=== PATIENT | female | born 1940 | race Two or more races ===

== ENCOUNTER 2017-02-10 19:28 | Inpatient (IN) | payer OTHER ==
[~2017-02-10] VITALS: Ht 157.5 cm; Wt 79.6 kg
[2017-02-10] MEDS ORDERED: ACETAMINOPHEN 325 MG TAB PO ONE ×2 (20:04→20:15)
[2017-02-10 21:40] LABS: Basophils # (auto) 0.1 uL; Basophils % (auto) 0.5 % (0.0-2.0); Eosinophils # (auto) 0 uL; Eosinophils % (auto) 0.1 % (0.0-7.0); Hematocrit 42.3 % (36.0-46.0); Hemoglobin 14.1 g/dL (12.2-16.2); Lymphocytes # (auto) 1.9 uL; Lymphocytes % (auto) 9.2 % (10.0-50.0); Mean Corpuscular Hemoglobin 29.2 pg (28.0-32.0); Mean Corpuscular Hgb Conc. 33.3 g/dL (32.0-36.0); Mean Corpuscular Volume 87.7 fL (80.0-100.0); Mean Platelet Volume 9.5 fL (6.9-10.8); Monocytes # (auto) 1.8 uL; Monocytes % (auto) 8.9 % (0.0-12.0); Neutrophils # (auto) 16.6 uL; Neutrophils % (auto) 81.3 % (37.0-80.0); Platelet Count (auto) 170 10^3/uL (140-450); White Blood Cell 20.4 10^3/uL (4.4-10.8)
[2017-02-10] MEDS ORDERED: CEFTRIAXONE SODIUM 2 GM in D5W 5% 50 ML IV ONE (21:45)
[2017-02-10 21:49] LABS: Urine Bilirubin Negative (Negative); Urine Blood 1+ /uL (Negative); Urine Color Yellow (Yellow); Urine Glucose Normal (Normal); Urine Ketone Negative (Negative); Urine Mucus FEW (None Seen); Urine Nitrite POSITIVE (Negative); Urine RBC 8 /hpf (0 - 4); Urine Squamous Epithelial Cell FEW /hpf (<5); Urine Urobilinogen Normal (Negative)
[2017-02-10 21:49] LABS: INR 1.15 (0.9-1.15); Partial Thromboplastin Time 27.7 sec (22.64-33.71); Prothrombin Time 12.6 sec (9.37-12.3)
[2017-02-10 22:02] LABS: Albumin 3.3 g/dL (3.4-5.0); BUN/Creatinine Ratio 24.2; Calcium 8.4 mg/dL (8.5-10.1); Potassium 3.3 mmol/L (3.5-5.1)
[2017-02-10] MEDS ORDERED: cefTRIAXone SOD 1,000 MG VL ONE (22:02)
[2017-02-10] MEDS ORDERED: cefTRIAXone 1GM/50ML D5W 50 ML IV ONE (22:02)
[2017-02-10 22:04] LABS: Magnesium 2.1 mg/dL (1.6-2.6)
[2017-02-10 22:05] LABS: Bilirubin, Total 0.4 mg/dL (0.2-1.0); Total Protein 7.5 g/dL (6.4-8.2)
[2017-02-11] VITALS (7 sets, daily range): BP systolic 106–132; BP diastolic 42–85
[2017-02-11] MEDS ORDERED: MORPHINE SULFATE 10 MG/ML INJ 1ML SDV IV PRN (03:00)
[2017-02-11] MEDS ORDERED: POTASSIUM CHL 20 Meq TABLET PO ONE (03:00)
[2017-02-11] MEDS ORDERED: ONDANSETRON HCL 4 MG/2 ML VIAL IV PRN (03:00)
[2017-02-11] MEDS ORDERED: TEMAZEPAM 15 MG CAP PO PRN (03:00)
[2017-02-11] MEDS ORDERED: ACETAMINOPHEN 325 MG TAB PO PRN (03:00)
[2017-02-11] MEDS ORDERED: SODIUM CHLORIDE 0.9% 1,000 ML IV ONE (03:00)
[2017-02-11] MEDS ORDERED: NITROGLYCERIN 0.4 MG SL TAB SL PRN (03:00)
[2017-02-11] MEDS ORDERED: DOCUSATE SOD 100 MG CAP PO PRN (03:00)
[2017-02-11] MEDS ORDERED: LEVOFLOXACIN 500MG 100 ML IV ONE (03:30)
[2017-02-11] MEDS: SODIUM CHLORIDE 0.9% 1,000 ML IV SCH ×2 (04:30→16:30)
[2017-02-11] MEDS: SUMAtriptan SUCCINATE 25 MG TAB PO PRN ×3 (05:59→14:38)
[2017-02-11] MEDS ORDERED: IBUP600T27 PO (06:25)
[2017-02-11] MEDS ORDERED: ALEN70TA55 PO (06:25)
[2017-02-11 08:27] LABS: Basophils # (auto) 0.1 uL; Basophils % (auto) 0.3 % (0.0-2.0); Eosinophils # (auto) 0.1 uL; Eosinophils % (auto) 0.3 % (0.0-7.0); Hematocrit 42.1 % (36.0-46.0); Hemoglobin 14.1 g/dL (12.2-16.2); Lymphocytes # (auto) 1.4 uL; Lymphocytes % (auto) 8.1 % (10.0-50.0); Mean Corpuscular Hemoglobin 29.4 pg (28.0-32.0); Mean Corpuscular Hgb Conc. 33.4 g/dL (32.0-36.0); Mean Corpuscular Volume 87.9 fL (80.0-100.0); Mean Platelet Volume 9.2 fL (6.9-10.8); Monocytes # (auto) 1.7 uL; Monocytes % (auto) 9.9 % (0.0-12.0); Neutrophils # (auto) 13.9 uL; Neutrophils % (auto) 81.4 % (37.0-80.0); Platelet Count (auto) 170 10^3/uL (140-450); Red Cell Distribution Width 15.1 % (11.8-14.3); White Blood Cell 17.2 10^3/uL (4.4-10.8)
[2017-02-11] MEDS: cefTRIAXone 1GM/50ML D5W 50 ML IV SCH (09:21)
[2017-02-11] MEDS: FAMOTIDINE 20 MG TAB PO SCH ×2 (09:22→21:35)
[2017-02-11] MEDS: ENOXAPARIN SOD 40 MG/0.4 ML SYRINGE SC SCH (09:22)
[2017-02-11] MEDS: HYDROcodone-ACET 5/325MG TAB PO PRN ×2 (15:38→20:19)
[2017-02-12] MEDS: SODIUM CHLORIDE 0.9% 1,000 ML IV SCH (00:10)
[2017-02-12 04:52] VITALS: BP 95/49
[2017-02-12 04:56] VITALS: BP 107/67
[2017-02-12 07:14] LABS: Basophils # (auto) 0 uL; Basophils % (auto) 0.2 % (0.0-2.0); Eosinophils # (auto) 0.1 uL; Hemoglobin 12.7 g/dL (12.2-16.2); Lymphocytes # (auto) 2.2 uL; Lymphocytes % (auto) 15.2 % (10.0-50.0); Mean Corpuscular Hemoglobin 29.4 pg (28.0-32.0); Mean Corpuscular Hgb Conc. 33.5 g/dL (32.0-36.0); Mean Corpuscular Volume 87.7 fL (80.0-100.0); Mean Platelet Volume 9.2 fL (6.9-10.8); Monocytes # (auto) 1.7 uL; Monocytes % (auto) 12.1 % (0.0-12.0); Neutrophils # (auto) 10.3 uL; Neutrophils % (auto) 71.5 % (37.0-80.0); Platelet Count (auto) 156 10^3/uL (140-450); Red Cell Distribution Width 14.9 % (11.8-14.3); White Blood Cell 14.4 10^3/uL (4.4-10.8)
[2017-02-12 07:34] LABS: Albumin 2.5 g/dL (3.4-5.0); BUN/Creatinine Ratio 23.4; Bilirubin, Total 0.3 mg/dL (0.2-1.0); Potassium 4.1 mmol/L (3.5-5.1); Total Protein 6.5 g/dL (6.4-8.2)
[2017-02-12 08:00] VITALS: BP 117/75
[2017-02-12] MEDS: cefTRIAXone 1GM/50ML D5W 50 ML IV SCH (09:44)
[2017-02-12] MEDS: FAMOTIDINE 20 MG TAB PO SCH ×2 (09:45→21:33)
[2017-02-12] MEDS: HYDROcodone-ACET 5/325MG TAB PO PRN (09:47)
[2017-02-12] MEDS: ENOXAPARIN SOD 40 MG/0.4 ML SYRINGE SC SCH (09:47)
[2017-02-12] MEDS ORDERED: LEVOFLOXACIN 500MG 100 ML IV SCH (10:00)
[2017-02-12 11:33] VITALS: BP 127/78
[2017-02-12] MEDS: ERTAPENEM 1GM IN NS 50 ML IV SCH (14:17)
[2017-02-12 17:04] VITALS: BP 135/77
[2017-02-12 21:32] VITALS: BP 128/80
[2017-02-13] MEDS ORDERED: SODIUM CHLORIDE 0.9% 1,000 ML IV SCH (03:00)
[2017-02-13 04:44] VITALS: BP 139/82
[2017-02-13 06:18] LABS: Basophils # (auto) 0.1 uL; Basophils % (auto) 0.6 % (0.0-2.0); Eosinophils # (auto) 0.1 uL; Eosinophils % (auto) 1.2 % (0.0-7.0); Hematocrit 39.3 % (36.0-46.0); Hemoglobin 13.1 g/dL (12.2-16.2); Lymphocytes # (auto) 1.9 uL; Lymphocytes % (auto) 17.1 % (10.0-50.0); Mean Corpuscular Hemoglobin 29.3 pg (28.0-32.0); Mean Corpuscular Hgb Conc. 33.5 g/dL (32.0-36.0); Mean Corpuscular Volume 87.7 fL (80.0-100.0); Mean Platelet Volume 9.8 fL (6.9-10.8); Monocytes # (auto) 1.1 uL; Monocytes % (auto) 9.9 % (0.0-12.0); Neutrophils % (auto) 71.2 % (37.0-80.0); Platelet Count (auto) 180 10^3/uL (140-450); Red Cell Distribution Width 14.8 % (11.8-14.3); White Blood Cell 11.3 10^3/uL (4.4-10.8)
[2017-02-13 09:00] VITALS: BP 136/84
[2017-02-13] MEDS ORDERED: LIDOCAINE 1% HCL (LOCAL ANESTH.) INJ 20ML MDV ID ONE (09:30)
[2017-02-13] MEDS: ENOXAPARIN SOD 40 MG/0.4 ML SYRINGE SC SCH (09:54)
[2017-02-13] MEDS: FAMOTIDINE 20 MG TAB PO SCH (09:55)
[2017-02-13] MEDS ORDERED: SODIUM CHLOR 0.9% PF (SALINE LOCK) 10ML VIAL IV SCH (10:00)
[2017-02-13 10:38] VITALS: BP 136/84
[2017-02-13 13:15] VITALS: BP 106/59
[2017-02-13] MEDS: ERTAPENEM 1GM IN NS 50 ML IV SCH (13:52)
[2017-02-13 15:16] VITALS: BP 125/86
== END 2017-02-13 17:00 | disposition home health service (06) | DRG 872 ==
LOC: ER 19:35 → TELE-CENTR 19:36
PROVIDERS: ADMIT Internal Medicine; ATTEND Internal Medicine
PROC: 02HV33Z Insertion of Infusion Device into Superior Vena Cava, Percutaneous Approach (ICD-10-PCS; principal; 2017-02-13)
DX: A41.51 Sepsis due to Escherichia coli [E. coli] (principal); N30.00 Acute cystitis without hematuria; E87.6 Hypokalemia; G43.909 Migraine, unspecified, not intractable, without status migrainosus; M81.0 Age-related osteoporosis without current pathological fracture; Z16.12 Extended spectrum beta lactamase (ESBL) resistance; G47.00 Insomnia, unspecified; M17.0 Bilateral primary osteoarthritis of knee; M16.0 Bilateral primary osteoarthritis of hip; Z82.49 Family history of ischemic heart disease and other diseases of the circulatory system; Z83.3 Family history of diabetes mellitus
CPT/HCPCS: 36415; 36569; 70450; 71010; 80053; 81001; 83605; 83735; 84484; 85025; 85610; 85730; 87040; 87086; 87088; 87186; 93005; 94761; 96365; 96367; J0696; J1335; J1956; J7060